=== PATIENT | female | born 1970 | race Caucasian/White ===

== ENCOUNTER 2023-07-17 15:07 | Outpatient (CLI) | payer BC, SELFPAY ==
--- NOTE | ~2023-07-17 | CT_ITS ---
CT Scan of the Chest without Contrast: Clinical Indication: Pulmonary nodule Technique: Contiguous sections were acquired throughout the chest without intravenous contrast. Dose reduction technique was used on this scan by utilizing automated exposure control and iterative recon struction technique. The dose-length product (DLP) was 76.03 mGy-cm. Findings: There is no evidence of any significant mediastinal, hilar or axillary lymphadenopathy. Calcified sub carinal lymph nodes present. The mediastinal soft tissues otherwise appear normal. There is no evidence of pleural or pericardial effusion. The lungs are clear, aside from calcified granulomas. Images through the upper abdomen reveal cholecystectomy clips, and evidence of prior bariatric surger y. Impression: No significant pulmonary abnormality. Lungs are clear aside from calcified granulomas, which are bev gn, and require no further follow-up. Reviewed, dictated and finalized at [facility]. Impression: No significant pulmonary abnormality. Lungs are clear aside from calcified gran ulomas, which are benign, and require no further follow-up.
--- NOTE | ~2023-07-17 | US_ITS ---
Pelvic ultrasound. Clinical History: Left ovarian cyst Technique: Realtime transabdominal and transvaginal scanning of the pelvis was performed. Color flow Doppler and Doppler spectral analysis were performed. Findings: The uterus is absent, compatible prior hysterectomy. The right ovary is not visualized. No significant right ovarian or adnexal mass is seen. The left ovary measures 4.8 x 3.0 x 2.8 cm. Left ovarian cyst measures 2.8 cm in diameter. There is no evidence of free fluid in the cul de sac. Impression: 2.8 cm simple left ovarian cyst. Uterus and right ovary not seen, compatible with prior resection. Reviewed, dictated and finalized at location . Impression: 2.8 cm simple left ovarian cyst. Uterus and right ovary not seen, compatible with prior resection.
== END 2023-07-17 15:08 ==
PROVIDERS: PCP Family Medicine; Visit Provider Family Medicine
DX: R91.1 Solitary pulmonary nodule (principal); N83.292 Other ovarian cyst, left side
CPT/HCPCS: 71250; 76830; 76856